=== PATIENT | male | born 1985 | race Caucasian/White ===

== ENCOUNTER 2024-06-29 01:26 | Emergency (ER) | payer SELFPAY ==
[~2024-06-29] VITALS: Ht 172.7 cm; Wt 75.0 kg
[2024-06-29 01:54] VITALS: BP 133/100; PULSE 95; RESP 18; TEMP 98.4; O2SAT 100
[2024-06-29 02:45] LABS: BASOPHILS % 1.1 % (0.0-2.0); EOSINOPHILS % 1.9 % (0.0-5.0); HEMATOCRIT. 50.5 % (42.0-52.0); HEMOGLOBIN. 17.3 g/dL (14.0-18.0); MEAN CORPUSCULAR HEMOGLOBIN 30.3 pg (28.0-32.0); MEAN CORPUSCULAR HGB CONC 34.3 g/dL (31.0-37.0); MEAN CORPUSCULAR VOLUME 88.4 fL (80.0-94.0); MEAN PLATELET VOLUME 8.2 fl (7.4-10.4); MONOCYTES % 7.3 % (2.0-8.0); NEUTROPHILS % 65.7 % (40.0-76.0); PLATELET 256 x1000/uL (130-400); RED BLOOD CELL COUNT 5.71 mill/uL (4.7-6.1); RED CELL DISTRIBUTION WIDTH 12.7 % (11.6-14.6); WHITE BLOOD COUNT 12.1 x1000/uL (4.5-11.0)
[2024-06-29] MEDS: HYDROXYZINE 10MG TABLET PO STA (02:53)
[2024-06-29] MEDS: IBUPROFEN 600MG TABLET PO ONE (03:00)
[2024-06-29 03:06] LABS: CHLORIDE 108 mEq/L (98-107); POTASSIUM 3.3 mEq/L (3.5-5.1); SODIUM 138 mEq/L (136-145)
[2024-06-29 03:07] LABS: CALCIUM 9.9 mg/dL (8.7-10.4); CARBON DIOXIDE 23 mEq/L (21-32)
[2024-06-29 03:12] LABS: CREATININE 0.9 mg/dL (0.6-1.3); GLUCOSE 100 mg/dL (70-105); UREA NITROGEN BLOOD 13 mg/dL (9-23)
[2024-06-29 03:16] LABS: TROPONIN I HIGH SENSITIVITY < 4 ng/L (3.0-53)
[2024-06-29] MEDS: IBUPROFEN 600MG TABLET PO NR (05:00)
[2024-06-29 06:48] LABS: TROPONIN I HIGH SENSITIVITY < 4 ng/L (3.0-53)
== END 2024-06-29 10:53 | disposition home or self-care (01) ==
LOC: ER 01:26
DX: R07.9 Chest pain, unspecified (principal); F41.9 Anxiety disorder, unspecified; Z87.891 Personal history of nicotine dependence; E87.6 Hypokalemia
CPT/HCPCS: 36415; 71045; 80048; 84484; 85025; 93005; 99285